=== PATIENT | female | born 1955 | race Caucasian/White ===

== ENCOUNTER 2020-01-20 17:06 | Inpatient (IN) | payer MEDICAID ==
[~2020-01-20] VITALS: Ht 160 cm; Wt 74.5 kg
--- NOTE | 2020-01-20 17:53 | NUR ---
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 ANTONIA
--- NOTE | 2020-01-20 17:56 | NUR ---
THIS IS A 64 YO F W/ C/O SUDDEN ONSET LT SIDED DENTAL PAIN AND LT SIDED MID BACK PAINX3 DAYS AFTER EATING SWEET POPCORN. PT IS POOR HISTORIAN. TEARFUL IN ROOM. PT REPORTS SHE IS VISITING FROM [place]. ANTONIA PENA. PT RESTING ON [email or web address] W/ CALL LIGHT IN REACH. SIDE RAILS UPX2. AWAITING ED EVAL.
--- NOTE | 2020-01-20 17:59 | NUR ---
PT REPORTS VOMITING TWICE TODAY AND WEAKNESS X3 DAYS.
--- NOTE | 2020-01-20 18:05 | NUR ---
PT REPORTS USING METH TODAY.
--- NOTE | 2020-01-20 18:08 | NUR ---
PT REPORTS TAKING 12 EXCEDRIN TODAY A WELL A WHOLE BOTTLE OF ORAGEL, LAST DOSE AT 1600.
--- NOTE | 2020-01-20 18:13 | NUR ---
REPORT RECEIVED FROM [place].
[2020-01-20] MEDS ORDERED: PENICILLIN VK 500MG TABLET PO STA (18:23)
[2020-01-20] MEDS ORDERED: PENICILLIN VK 500MG TABLET ONE (18:29)
--- NOTE | 2020-01-20 18:32 | NUR ---
PT MEDICATED PER EMAR. PT TOLERATED WELL.
--- NOTE | 2020-01-20 18:51 | NUR ---
Report received from MISSY Brewer. This RN to assume care.
--- NOTE | 2020-01-20 18:51 | NUR ---
REPORT GIVEN TO MANNY LOUIS.
[2020-01-20 19:08] LABS: ALANINE AMINOTRANSFERASE 16 U/L (12-78); ANION GAP 6 mmol/L (5-15); CALCIUM 8.3 mg/dL (8.5-10.1); CHLORIDE 116 mmol/L (98-107); CREATININE 0.58 mg/dL (0.55-1.02); SALICYLATE LEVEL 11.3 mg/dL (2.8-20.0)
[2020-01-20 19:10] LABS: ALKALINE PHOSPHATASE 90 U/L (45-117); BILIRUBIN,TOTAL 0.2 mg/dL (0.2-1.0); MEAN CORPUSCULAR HEMOGLOBIN 19.8 pg (27.0-34.8); MEAN CORPUSCULAR VOLUME 66.2 fL (80-100); MEAN PLATELET VOLUME 7.1 fL (7.4-10.4); PLATELET COUNT 475 x10^3/uL (130-400); RED BLOOD COUNT 2.86 x10^6/uL (3.82-5.3); RED CELL DISTRIBUTION WIDTH 18.8 % (9.6-15.2); TOTAL PROTEIN 6.5 g/dL (6.4-8.2)
[2020-01-20 19:12] LABS: MEAN CORPUSCULAR HGB CONC 29.8 g/dL (32.4-35.8)
[2020-01-20 19:28] LABS: MD YES
[2020-01-20] MEDS ORDERED: SODIUM CHLORIDE FLUSH 10ML SYR IVF ONE (19:30)
[2020-01-20 19:32] LABS: % IRON SATURATION 2 % (20-55); IRON LEVEL 7 mcg/dL (50-170); TOTAL IRON BINDING CAPACITY 442 mcg/dL (250-450)
[2020-01-20 19:38] LABS: BASOS#(MANUAL) 0.08 x10^3/uL (0-0.1); BASOS% (MANUAL) 1 % (0-1); LYMPH#(MANUAL) 1.69 x10^3/uL (1-3.4); LYMPHS% (MANUAL) 22 % (22-44); MONOS#(MANUAL) 0.46 x10^3/uL (0.3-2.7); MONOS% (MANUAL) 6 % (2-9); SEG#(MANUAL) 5.47 x10^3/uL (1.8-6.8); SEGS% (MANUAL) 71 % (42-75)
[2020-01-20 19:39] LABS: HYPOCHROMIA 3+; MICROCYTOSIS 2+; OVALOCYTES 1+; POLYCHROMASIA 1+
[2020-01-20 19:40] LABS: <PLATELET ESTIMATE> INCREASED; <PLT MORPHOLOGY> NORMAL PLT MORPH; STOMATOCYTES 1+
[2020-01-20] MEDS ORDERED: NS + 20MEQ KCL 1,000 ML IV SCH (20:06)
[2020-01-20] MEDS ORDERED: ONDANSETRON 2MG/ML, 2ML ONE (20:18)
[2020-01-20] MEDS ORDERED: MORPHINE SULFATE 4 MG/ML, 1ML ONE (20:18)
[2020-01-20] MEDS ORDERED: POLYETHYLENE GLYCOL 17 GM PACKET PO PRN (20:30)
[2020-01-20] MEDS ORDERED: BISACODYL 10 MG SUPP PR PRN (20:30)
--- NOTE | 2020-01-20 20:34 | NUR ---
Patient Hgb/Hct abnormal; patient to receive blood.
[2020-01-20] MEDS: ONDANSETRON 2MG/ML, 2ML IVPush PRN (20:36)
[2020-01-20] MEDS: morphine SULFATE 10 MG/ML, 1ML IVPush PRN (20:36)
[2020-01-20 20:45] VITALS: BP 124/53
[2020-01-20 21:10] VITALS: BP 125/50
--- NOTE | 2020-01-20 21:56 | NUR ---
Report given to MISSY Castro. Patient transferred to room 488-2.
[2020-01-20 22:00] VITALS: BP 132/76
[2020-01-20 22:02] VITALS: BP 132/76
[2020-01-20 22:53] VITALS: BP 120/75
[2020-01-20] MEDS: POTASSIUM CHLORIDE 20 MEQ in SODIUM CHLORIDE 0.45% 1,000 ML IV SCH (23:32)
[2020-01-21] VITALS (9 sets, daily range): BP systolic 106–149; BP diastolic 57–82
[2020-01-21 05:31] LABS: ANION GAP 3 mmol/L (5-15); CALCIUM 8.2 mg/dL (8.5-10.1); CHLORIDE 115 mmol/L (98-107); CREATININE 0.64 mg/dL (0.55-1.02)
[2020-01-21] MEDS ORDERED: IRON DEXTRAN IV PER PHARMACY IV ONE (08:00)
[2020-01-21] MEDS ORDERED: IRON DEXTRAN COMPLEX 25 MG in SODIUM CHLORIDE 0.9% 50 ML IV ONE (08:00)
[2020-01-21] MEDS: SENNA/DOCUSATE TABLET PO SCH (08:26)
[2020-01-21] MEDS ORDERED: EPINEPHRINE 1 MG/ML, 1ML IV PRN (08:30)
[2020-01-21] MEDS: ACETAMINOPHEN 325 MG TABLET PO PRN ×2 (08:43→20:49)
[2020-01-21] MEDS ORDERED: IRON DEXTRAN COMPLEX IV ONE (09:00)
[2020-01-21] MEDS ORDERED: SODIUM CHLORIDE 0.9% IV ONE (09:00)
[2020-01-21] MEDS ORDERED: IRON DEXTRAN COMPLEX 1,700 MG in SODIUM CHLORIDE 0.9% 250 ML IV ONE (10:37)
[2020-01-21] MEDS: PANTOPRAZOLE 40 MG IV IVPush SCH ×2 (11:36→20:48)
[2020-01-21] MEDS: POTASSIUM CHLORIDE 20 MEQ in SODIUM CHLORIDE 0.45% 1,000 ML IV SCH (11:36)
[2020-01-21] MEDS ORDERED: PROPOFOL 50 ML ONE (12:28)
[2020-01-21] MEDS ORDERED: CHLORHEXIDINE 15 ML UDC ONE (12:47)
[2020-01-21] MEDS ORDERED: FENTANYL PF 100 MCG/2ML IV PRN (13:00)
[2020-01-21] MEDS ORDERED: hydrALAzine 20 MG/ML, 1ML IV PRN (13:00)
[2020-01-21] MEDS ORDERED: EPHEDRINE 50 MG/ML, 1ML IVPush PRN (13:00)
[2020-01-21] MEDS ORDERED: OXYcodone 5 MG/5 ML ORAL.SOL UDC PO PRN (13:00)
[2020-01-21] MEDS ORDERED: LABETALOL 5MG/ML, 20ML IV PRN (13:00)
[2020-01-21] MEDS ORDERED: HYDROmorphone 1 MG/ML, 1ML INJ IVPush PRN (13:00)
[2020-01-21] MEDS ORDERED: ACETAMINOPHEN 325 MG TABLET PO PRN (13:00)
[2020-01-21] MEDS ORDERED: MEPERIDINE/PF 25MG/0.5ML IVPush PRN (13:00)
[2020-01-21] MEDS ORDERED: ONDANSETRON 2MG/ML, 2ML IVPush PRN (13:00)
[2020-01-21] MEDS ORDERED: PROMETHAZINE 25 MG/ML, 1ML IVPush PRN (13:00)
[2020-01-22 02:00] VITALS: BP 143/76
[2020-01-22] MEDS: POTASSIUM CHLORIDE 20 MEQ in SODIUM CHLORIDE 0.45% 1,000 ML IV SCH ×2 (02:36→12:52)
[2020-01-22 06:42] LABS: BASOPHILS % (AUTO) 0 % (0-1); EOSINOPHILS # (AUTO) 0.33 x10^3/uL (0-0.4); EOSINOPHILS % (AUTO) 5 % (1-7); LYMPHOCYTES # (AUTO) 1.34 x10^3/uL (1-3.4); LYMPHOCYTES % (AUTO) 21 % (22-44); MD NO; MEAN CORPUSCULAR HEMOGLOBIN 21.7 pg (27.0-34.8); MEAN CORPUSCULAR HGB CONC 30.7 g/dL (32.4-35.8); MEAN CORPUSCULAR VOLUME 70.7 fL (80-100); MEAN PLATELET VOLUME 7.4 fL (7.4-10.4); MONOCYTES # (AUTO) 0.44 x10^3/uL (0.2-0.8); MONOCYTES % (AUTO) 7 % (2-9); NEUTROPHILS # (AUTO) 4.17 x10^3/uL (1.8-6.8); NEUTROPHILS % (AUTO) 66 % (42-75); PLATELET COUNT 469 x10^3/uL (130-400); RED CELL DISTRIBUTION WIDTH 21.5 % (9.6-15.2)
[2020-01-22 06:53] LABS: ANION GAP 4 mmol/L (5-15); CALCIUM 8.3 mg/dL (8.5-10.1); CHLORIDE 113 mmol/L (98-107); CREATININE 0.58 mg/dL (0.55-1.02)
[2020-01-22 06:58] VITALS: BP 134/87
[2020-01-22] MEDS: ACETAMINOPHEN 325 MG TABLET PO PRN ×2 (06:59→12:02)
[2020-01-22 07:14] LABS: INTERNATIONAL NORMALIZED RATIO 1.05 (0.93-1.1); PROTHROMBIN TIME 11.1 Seconds (9.6-11.5)
[2020-01-22] MEDS: SENNA/DOCUSATE TABLET PO SCH (09:09)
[2020-01-22] MEDS: PANTOPRAZOLE 40 MG IV IVPush SCH ×2 (09:09→21:02)
[2020-01-22] MEDS: AMPICILLIN/SULBACTAM 3 GM in SODIUM CHLORIDE 0.9% 100 ML IV SCH ×2 (11:41→18:27)
[2020-01-22 13:44] VITALS: BP 156/75
[2020-01-22] MEDS ORDERED: BUPIVACAINE/PF 0.25% ONE (15:19)
[2020-01-22] MEDS ORDERED: EPINEPHRINE 1 MG/ML, 1ML ONE (15:19)
[2020-01-22] MEDS ORDERED: LIDOCAINE 1%-EPI 1:100K, 20ML ONE (15:19)
[2020-01-22] MEDS ORDERED: CHLORHEXIDINE 15 ML UDC MM STA (16:08)
[2020-01-22] MEDS ORDERED: CHLORHEXIDINE 15 ML UDC ONE (16:12)
[2020-01-22] MEDS ORDERED: FENTANYL PF 100 MCG/2ML ONE ×2 (16:37→17:27)
[2020-01-22] MEDS ORDERED: OXYcodone 5 MG/5 ML ORAL.SOL UDC ONE (17:27)
[2020-01-22] MEDS ORDERED: ACETAMINOPHEN 325 MG TABLET PO PRN (17:30)
[2020-01-22] MEDS ORDERED: MEPERIDINE/PF 25MG/0.5ML IVPush PRN (17:30)
[2020-01-22] MEDS ORDERED: DIAZEPAM 5 MG/ML, 2ML IVPush PRN (17:30)
[2020-01-22] MEDS ORDERED: hydrALAzine 20 MG/ML, 1ML IV PRN (17:30)
[2020-01-22] MEDS ORDERED: HYDROmorphone 1 MG/ML, 1ML INJ IVPush PRN (17:30)
[2020-01-22] MEDS ORDERED: OXYcodone 5 MG/5 ML ORAL.SOL UDC PO PRN (17:30)
[2020-01-22] MEDS ORDERED: HALOPERIDOL 5 MG/ML IV PRN (17:30)
[2020-01-22] MEDS ORDERED: ONDANSETRON 2MG/ML, 2ML IVPush PRN (17:30)
[2020-01-22] MEDS ORDERED: LABETALOL 5MG/ML, 20ML IV PRN (17:30)
[2020-01-22] MEDS ORDERED: PROMETHAZINE 25 MG/ML, 1ML IVPush PRN (17:30)
[2020-01-22] MEDS: FENTANYL PF 100 MCG/2ML IV PRN ×2 (17:31→17:36)
[2020-01-22 20:00] VITALS: BP 122/74
[2020-01-22] MEDS: CHLORHEXIDINE GLUCONATE MOUTHWASH 0.12%, 473ML MM SCH (21:02)
[2020-01-23 01:01] VITALS: BP 148/73
[2020-01-23] MEDS: ACETAMINOPHEN 325 MG TABLET PO PRN ×2 (01:01→21:56)
[2020-01-23] MEDS: AMPICILLIN/SULBACTAM 3 GM in SODIUM CHLORIDE 0.9% 100 ML IV SCH ×5 (01:02→22:44)
[2020-01-23 06:20] LABS: BASOPHILS # (AUTO) 0.04 x10^3/uL (0-0.1); BASOPHILS % (AUTO) 0 % (0-1); EOSINOPHILS # (AUTO) 0.18 x10^3/uL (0-0.4); EOSINOPHILS % (AUTO) 2 % (1-7); LYMPHOCYTES # (AUTO) 1.36 x10^3/uL (1-3.4); LYMPHOCYTES % (AUTO) 14 % (22-44); MD NO; MEAN CORPUSCULAR HEMOGLOBIN 21.7 pg (27.0-34.8); MEAN CORPUSCULAR HGB CONC 30.7 g/dL (32.4-35.8); MEAN CORPUSCULAR VOLUME 70.9 fL (80-100); MONOCYTES # (AUTO) 0.68 x10^3/uL (0.2-0.8); MONOCYTES % (AUTO) 7 % (2-9); NEUTROPHILS # (AUTO) 7.66 x10^3/uL (1.8-6.8); NEUTROPHILS % (AUTO) 77 % (42-75); PLATELET COUNT 516 x10^3/uL (130-400); RED BLOOD COUNT 3.82 x10^6/uL (3.82-5.3); RED CELL DISTRIBUTION WIDTH 22.5 % (9.6-15.2)
[2020-01-23 06:26] LABS: ANION GAP 6 mmol/L (5-15); CHLORIDE 110 mmol/L (98-107); CREATININE 0.53 mg/dL (0.55-1.02)
[2020-01-23 07:37] VITALS: BP 120/54
[2020-01-23] MEDS: CHLORHEXIDINE GLUCONATE MOUTHWASH 0.12%, 473ML MM SCH ×2 (09:00→20:44)
[2020-01-23] MEDS ORDERED: POTASSIUM CHLORIDE 20 MEQ TAB.ER.PRT PO ONE (09:00)
[2020-01-23] MEDS: SENNA/DOCUSATE TABLET PO SCH (09:00)
[2020-01-23] MEDS: PANTOPRAZOLE 40 MG IV IVPush SCH ×2 (10:07→20:44)
[2020-01-23 19:10] VITALS: BP 119/78
[2020-01-24 01:05] VITALS: BP 125/74
[2020-01-24] MEDS: AMPICILLIN/SULBACTAM 3 GM in SODIUM CHLORIDE 0.9% 100 ML IV SCH ×4 (04:40→23:21)
[2020-01-24 06:02] LABS: MEAN CORPUSCULAR HEMOGLOBIN 21.5 pg (27.0-34.8); MEAN CORPUSCULAR HGB CONC 30.3 g/dL (32.4-35.8); MEAN CORPUSCULAR VOLUME 70.9 fL (80-100); MEAN PLATELET VOLUME 7.4 fL (7.4-10.4); PLATELET COUNT 511 x10^3/uL (130-400); RED BLOOD COUNT 3.83 x10^6/uL (3.82-5.3); RED CELL DISTRIBUTION WIDTH 23.1 % (9.6-15.2)
[2020-01-24 06:07] LABS: ANION GAP 5 mmol/L (5-15); CALCIUM 8.8 mg/dL (8.5-10.1); CHLORIDE 110 mmol/L (98-107); CREATININE 0.54 mg/dL (0.55-1.02)
[2020-01-24 06:27] LABS: MD MORPH REVIEW ONLY
[2020-01-24 06:28] LABS: BASOPHILS % (AUTO) 0 % (0-1); EOSINOPHILS # (AUTO) 0.29 x10^3/uL (0-0.4); EOSINOPHILS % (AUTO) 4 % (1-7); LYMPHOCYTES # (AUTO) 1.77 x10^3/uL (1-3.4); LYMPHOCYTES % (AUTO) 25 % (22-44); MONOCYTES # (AUTO) 0.67 x10^3/uL (0.2-0.8); MONOCYTES % (AUTO) 9 % (2-9); NEUTROPHILS # (AUTO) 4.41 x10^3/uL (1.8-6.8); NEUTROPHILS % (AUTO) 62 % (42-75)
[2020-01-24 06:29] LABS: <PLATELET ESTIMATE> INCREASED; <PLT MORPHOLOGY> NORMAL PLT MORPH; ANISOCYTOSIS 2+; HYPOCHROMIA 2+; MICROCYTOSIS 1+; OVALOCYTES 1+; POLYCHROMASIA 1+
[2020-01-24 07:17] VITALS: BP 132/74
[2020-01-24] MEDS: SENNA/DOCUSATE TABLET PO SCH (09:00)
[2020-01-24] MEDS: PANTOPRAZOLE 40 MG IV IVPush SCH ×2 (09:10→21:01)
[2020-01-24] MEDS: CHLORHEXIDINE GLUCONATE MOUTHWASH 0.12%, 473ML MM SCH ×2 (10:20→21:01)
[2020-01-24 12:36] VITALS: BP 118/73
[2020-01-24] MEDS: ONDANSETRON 2MG/ML, 2ML IVPush PRN (17:53)
[2020-01-24 19:24] VITALS: BP 124/74
[2020-01-24] MEDS: ACETAMINOPHEN 325 MG TABLET PO PRN (21:49)
[2020-01-25 00:43] VITALS: BP 114/63
[2020-01-25] MEDS: morphine SULFATE 10 MG/ML, 1ML IVPush PRN (01:53)
[2020-01-25] MEDS: AMPICILLIN/SULBACTAM 3 GM in SODIUM CHLORIDE 0.9% 100 ML IV SCH ×2 (04:52→11:36)
[2020-01-25 06:36] VITALS: BP 102/62
[2020-01-25] MEDS: SENNA/DOCUSATE TABLET PO SCH (08:49)
[2020-01-25] MEDS: PANTOPRAZOLE 40 MG IV IVPush SCH (08:49)
[2020-01-25] MEDS ORDERED: CHLORHEXIDINE 15 ML UDC MM SCH (09:00)
[2020-01-25] MEDS ORDERED: PANT40TA3 PO (11:29)
== END 2020-01-25 13:49 | disposition home or self-care (01) | DRG 92 ==
LOC: ED 19:35 → EDIP 20:30 → 4EST 21:50 → DCLOUNGE 01-25 13:39
PROVIDERS: ADMIT Internal Medicine; ATTEND Internal Medicine
PROC: 0DB78ZX Excision of Stomach, Pylorus, Via Natural or Artificial Opening Endoscopic, Diagnostic (ICD-10-PCS; 2020-01-21)
PROC: 30233N1 Transfusion of Nonautologous Red Blood Cells into Peripheral Vein, Percutaneous Approach (ICD-10-PCS; principal; 2020-01-21 14:30)
PROC: 0NQV0ZZ Repair Left Mandible, Open Approach (ICD-10-PCS; 2020-01-22)
PROC: 0CDXXZ1 Extraction of Lower Tooth, Multiple, External Approach (ICD-10-PCS; 2020-01-22)
DX: K04.7 Periapical abscess without sinus (principal); K22.11 Ulcer of esophagus with bleeding; D69.6 Thrombocytopenia, unspecified; K29.61 Other gastritis with bleeding; D50.9 Iron deficiency anemia, unspecified; F15.10 Other stimulant abuse, uncomplicated; E87.6 Hypokalemia; F17.210 Nicotine dependence, cigarettes, uncomplicated; K02.9 Dental caries, unspecified; L02.01 Cutaneous abscess of face; K21.9 Gastro-esophageal reflux disease without esophagitis; K44.9 Diaphragmatic hernia without obstruction or gangrene; Z90.49 Acquired absence of other specified parts of digestive tract; Z79.899 Other long term (current) drug therapy
CPT/HCPCS: 36415; 70100; 80048; 80053; 80307; 82728; 83540; 83550; 83735; 85014; 85018; 85025; 85610; 85730; 86850; 86900; 86923; 87635; 88305; G0378; J0171; J0295; J1750; J2405; J2704; J3010; J3480; J3490; C9113; J2270; J7050; P9016

== ENCOUNTER 2020-10-02 12:33 | Emergency (ER) | payer MEDICAID ==
[~2020-10-02] VITALS: Ht 157.5 cm; Wt 79.4 kg
[~2020-10-02 12:33] MED LIST: PANT40TA3 PO
--- NOTE | 2020-10-02 13:08 | NUR ---
NO ANSWER IN LOBBY.
--- NOTE | 2020-10-02 13:37 | NUR ---
NECK AND SHOULDER PAIN X 3 DAYS. DENIES INJURY. ue cms intact x2
--- NOTE | 2020-10-02 14:57 | NUR ---
PATIENT RESTING IN ANTONIA LAMAS, CALL LIGHT WITHIN REACH. AWAITING PROVIDER ORDERS.
--- NOTE | 2020-10-02 15:11 | NUR ---
ERPA AT BEDSIDE FOR EVALUATION.
--- NOTE | 2020-10-02 15:29 | NUR ---
PATIENT AMBULATED TO BATHROOM WITH STEADY GAIT FOR URINE SAMPLE.
[2020-10-02 15:34] LABS: BASOPHILS % (AUTO) 0 % (0-1); EOSINOPHILS % (AUTO) 1 % (1-7); LYMPHOCYTES % (AUTO) 15 % (22-44); MEAN CORPUSCULAR HEMOGLOBIN 29.9 pg (27.0-34.8); MEAN CORPUSCULAR HGB CONC 33.3 g/dL (32.4-35.8); MEAN PLATELET VOLUME 7.2 fL (7.4-10.4); MONOCYTES % (AUTO) 8 % (2-9); NEUTROPHILS % (AUTO) 76 % (42-75); PLATELET COUNT 333 x10^3/uL (130-400); RED BLOOD COUNT 4.89 x10^6/uL (3.82-5.3); RED CELL DISTRIBUTION WIDTH 14.3 % (9.6-15.2)
[2020-10-02 15:35] LABS: MD NO
--- NOTE | 2020-10-02 15:38 | NUR ---
URINE COLLECTED AND SENT TO LAB.
[2020-10-02 15:47] LABS: ALBUMIN 3.5 g/dL (3.4-5.0); ANION GAP 8 mmol/L (5-15); CALCIUM 9.1 mg/dL (8.5-10.1); CHLORIDE 105 mmol/L (98-107); CREATININE 0.67 mg/dL (0.55-1.02)
[2020-10-02 15:48] LABS: MICROSCOPIC NOT IND
[2020-10-02] MEDS ORDERED: DIAZEPAM 5 MG TABLET ONE (17:04)
[2020-10-02] MEDS ORDERED: IBUPROFEN 600 MG TABLET ONE (17:04)
--- NOTE | 2020-10-02 17:08 | NUR ---
PATIENT C/O 03/02 NECK AND BACK PAIN, PATIENT MEDICATED PER eMAR, NADN, VSS, CALL LIGHT WITHIN REACH. PATIENT UP FOR RECHECK.
[2020-10-02] MEDS ORDERED: IBUPROFEN 200 MG TABLET PO ONE (17:30)
[2020-10-02] MEDS ORDERED: DIAZEPAM 5 MG TABLET PO ONE (17:30)
--- NOTE | 2020-10-02 18:10 | NUR ---
ERMD AT BEDSIDE TO DISCUSS POC.
[2020-10-02 18:36] VITALS: BP 135/60
--- NOTE | 2020-10-02 18:36 | NUR ---
Patient given discharge instructions and prescriptions and they have confirmed that they understand the instructions. Patient stable and ambulatory with steady gait from ED to private vehicle.
== END 2020-10-02 18:37 | disposition home or self-care (01) ==
LOC: ED 16:12
DX: S16.1XXA Strain of muscle, fascia and tendon at neck level, initial encounter (principal); R51.9 Headache, unspecified; X58.XXXA Exposure to other specified factors, initial encounter; Y93.89 Activity, other specified; Y92.89 Other specified places as the place of occurrence of the external cause; Y99.8 Other external cause status
CPT/HCPCS: 36415; 70450; 72125; 80048; 81003; 82040; 85025; 99285